=== PATIENT | female | born 1950 | race Caucasian/White ===

== ENCOUNTER 2017-04-27 09:53 | Inpatient (IN) | payer OTHER, BC ==
[~2017-04-27] VITALS: Ht 152.4 cm; Wt 73.8 kg
[2017-04-27] VITALS (22 sets, daily range): BP systolic 82–127; BP diastolic 32–62
[2017-04-27 10:43] LABS: BASOPHIL (%) 0.2 % (0-1); EOSINOPHIL (%) 0 % (0-5); HEMATOCRIT 13.1 % (36.0-46.0); HEMOGLOBIN 4.3 G/DL (11.9-15.5); IMMATURE GRANULOCYTE (%) 0.6 % (0.0-0.7); LYMPHOCYTE (%) 14.7 % (15-42); LYMPHOCYTE COUNT 1.8 K/uL (1.0-2.8); MCH 35.2 PG (29.0-34.0); MCHC 32.8 G/DL (30.0-36.0); MCV 107.4 FL (83-99); MONOCYTE COUNT 0.7 K/uL (0-0.8); NEUTROPHIL (%) 78.5 % (45-76); NEUTROPHIL COUNT 9.4 K/uL (1.8-6.4); PLATELET COUNT 212 K/uL (156-360); RBC DIS.WIDTH-CV 14.3 % (11.8-14.6); RBC DIS.WIDTH-SD 56.5 % (39-53); RED BLOOD COUNT 1.22 M/uL (3.80-5.20)
[2017-04-27 10:45] LABS: ALBUMIN 2.5 g/dL (3.2-4.8)
[2017-04-27 10:46] LABS: CHLORIDE 110 mEq/L (99-109); SODIUM 137 mEq/L (136-147)
[2017-04-27 10:48] LABS: GLUCOSE 131 mg/dL (70-99); TOTAL PROTEIN 5.1 g/dL (6.4-8.3)
[2017-04-27 10:50] LABS: TOTAL BILIRUBIN 0.9 mg/dL (0.0-1.0)
[2017-04-27 10:51] LABS: ALKALINE PHOSPHATASE 421 IU/L (3-129)
[2017-04-27 10:52] LABS: GFR ESTIMATE (CALCULATED) 59 mL/min/
[2017-04-27 10:53] LABS: AST (GOT) 87 IU/L (2-34); UREA NITROGEN (BUN) 49 mg/dL (9-23)
[2017-04-27 10:54] LABS: ALT (GPT) 53 IU/L (3-49)
[2017-04-27 10:55] LABS: LIPASE 89 U/L (1.0-51.0)
[2017-04-27] MEDS ORDERED: B-COMPLEX-VITA1 EACH PO (11:26)
[2017-04-27] MEDS ORDERED: ASCORBIC ACID250 MG PO (11:26)
[2017-04-27] MEDS ORDERED: VITAMIN D31000 UNI2 PO (11:27)
[2017-04-27] MEDS ORDERED: GINKGO BILOBA60 M3 PO (11:28)
[2017-04-27] MEDS ORDERED: CALCIUM-MAGNES1 EA10 PO (11:28)
[2017-04-27] MEDS ORDERED: HAIR, SKIN & N1 EAC1 PO (11:29)
[2017-04-27 13:03] LABS: INTER. NORMALIZED RATIO 1.3
[2017-04-27 13:06] LABS: PTT 30.1 SEC (25-37)
[2017-04-27 18:43] LABS: CHLORIDE 111 MEQ/L (99-109); POTASSIUM 4.3 MEQ/L (3.7-5.4); SODIUM 137 MEQ/L (136-147)
[2017-04-27 18:47] LABS: HEMATOCRIT 19.4 % (36.0-46.0); HEMOGLOBIN 6.6 G/DL (11.9-15.5); MCH 31.9 PG (29.0-34.0); MCV 93.7 FL (83-99); NRBC (%) 0.1 /100 WBC (0-0); PLATELET COUNT 164 K/uL (156-360); RBC DIS.WIDTH-CV 18.9 % (11.8-14.6); RBC DIS.WIDTH-SD 63.1 % (39-53); RED BLOOD COUNT 2.07 M/uL (3.80-5.20)
[2017-04-27 18:48] LABS: CREATININE 0.9 MG/DL (0.6-1.3); GFR ESTIMATE (CALCULATED) > 59 mL/min/; GLUCOSE 116 mg/dL (70-99); UREA NITROGEN (BUN) 46 mg/dL (9-23)
[2017-04-27 19:09] LABS: FERRITIN 7 NG/ML (10-291)
[2017-04-27 19:15] LABS: FOLIC ACID (FOLATE) 14.9 NG/ML (5.0-22.0)
[2017-04-28] VITALS (31 sets, daily range): BP systolic 89–156; BP diastolic 36–101
[2017-04-28 05:24] LABS: INTER. NORMALIZED RATIO 1.2
[2017-04-28 05:25] LABS: BASOPHIL (%) 0.5 % (0-1); BASOPHIL COUNT 0.1 K/uL (0-0.1); EOSINOPHIL (%) 0.2 % (0-5); IMMATURE GRANULOCYTE (%) 1.2 % (0.0-0.7); LYMPHOCYTE (%) 19.2 % (15-42); LYMPHOCYTE COUNT 3.1 K/uL (1.0-2.8); MCH 28.5 PG (29.0-34.0); MCHC 33.1 G/DL (30.0-36.0); MONOCYTE (%) 7.6 % (3-12); MONOCYTE COUNT 1.2 K/uL (0-0.8); NEUTROPHIL (%) 71.3 % (45-76); NEUTROPHIL COUNT 11.7 K/uL (1.8-6.4); NRBC (%) 0.3 /100 WBC (0-0); PLATELET COUNT 150 K/uL (156-360); WHITE BLOOD COUNT 16.3 K/uL (4.1-10.2)
[2017-04-28 05:28] LABS: HEMOGLOBIN 9.6 G/DL (11.9-15.5); MCV 86.1 FL (83-99); RED BLOOD COUNT 3.37 M/uL (3.80-5.20)
[2017-04-28 05:44] LABS: ALBUMIN 2.3 G/DL (3.2-4.8); ALKALINE PHOSPHATASE 284 IU/L (3-129); ALT (GPT) 39 IU/L (3-49); AST (GOT) 58 IU/L (2-34); CHLORIDE 107 MEQ/L (99-109); CREATININE 1.1 MG/DL (0.6-1.3); GFR ESTIMATE (CALCULATED) 53 mL/min/; GLUCOSE 109 mg/dL (70-99); POTASSIUM 4.7 MEQ/L (3.7-5.4); SODIUM 138 MEQ/L (136-147); TOTAL BILIRUBIN 2.3 MG/DL (0.0-1.0); TOTAL PROTEIN 4.9 G/DL (6.4-8.3); UREA NITROGEN (BUN) 46 mg/dL (9-23)
[2017-04-28 11:17] LABS: HEPATITIS B SURFACE ANTIGEN Nonreactive; HEPATITIS C ANTIBODY Nonreactive
[2017-04-28 12:32] LABS: HEMATOCRIT 27.9 % (36.0-46.0); HEMOGLOBIN 9.2 G/DL (11.9-15.5); MCH 28.8 PG (29.0-34.0); MCV 87.2 FL (83-99); NRBC (%) 0.2 /100 WBC (0-0); PLATELET COUNT 127 K/uL (156-360); RBC DIS.WIDTH-CV 21.1 % (11.8-14.6); RBC DIS.WIDTH-SD 65.6 % (39-53); WHITE BLOOD COUNT 12.1 K/uL (4.1-10.2)
[2017-04-28 17:56] LABS: BICARBONATE 20.4 mEq/L (22-26); CARBOXY HGB 1.5 % (0-5); COMMENTS - BLOOD GASES A+C+; METHEMOGLOBIN 1.4 % (0-1.5); PCO2 30 mm Hg (35-45); PO2 323 mm Hg (80-100); SITE RR; pH 7.44 (7.35-7.45)
[2017-04-28 17:57] LABS: DEVICE 980VENT; FI02 100 %; MECHANICAL RATE 10 resp/min; MODE AC; PEEP 5 CM/H20; TIDAL VOLUME 500 ML; TOTAL RESP RATE 13 resp/min
[2017-04-28 18:31] LABS: HEMATOCRIT 29.1 % (36.0-46.0); HEMOGLOBIN 9.7 G/DL (11.9-15.5); MCH 28.8 PG (29.0-34.0); MCHC 33.3 G/DL (30.0-36.0); MCV 86.4 FL (83-99); NRBC (%) 0.2 /100 WBC (0-0); RBC DIS.WIDTH-CV 21.2 % (11.8-14.6); RBC DIS.WIDTH-SD 64.5 % (39-53); RED BLOOD COUNT 3.37 M/uL (3.80-5.20); WHITE BLOOD COUNT 12.3 K/uL (4.1-10.2)
[2017-04-28 18:44] LABS: PLAT.SUFFICIENCY DECREASED; PLATELET COUNT 131 K/uL (156-360)
[2017-04-29] VITALS (23 sets, daily range): BP systolic 93–135; BP diastolic 40–70
[2017-04-29 01:08] LABS: HEMATOCRIT 30.8 % (36.0-46.0); HEMOGLOBIN 9.7 G/DL (11.9-15.5); MCH 29.5 PG (29.0-34.0); MCHC 31.5 G/DL (30.0-36.0); MCV 93.6 FL (83-99); NRBC (%) 0.4 /100 WBC (0-0); RBC DIS.WIDTH-CV 22.3 % (11.8-14.6); RBC DIS.WIDTH-SD 74.4 % (39-53); RED BLOOD COUNT 3.29 M/uL (3.80-5.20); WHITE BLOOD COUNT 20.5 K/uL (4.1-10.2)
[2017-04-29 01:47] LABS: PLAT.SUFFICIENCY DECREASED; PLATELET CLUMPS PRESENT - PLATELET COUNTS APPEARS DECREASED
[2017-04-29 02:00] LABS: PLATELET COUNT UNABLE TO REPORT K/uL (156-360)
[2017-04-29 06:18] LABS: ALBUMIN 2.3 G/DL (3.2-4.8); ALKALINE PHOSPHATASE 241 IU/L (3-129); ALT (GPT) 40 IU/L (3-49); AST (GOT) 52 IU/L (2-34); CHLORIDE 111 MEQ/L (99-109); GFR ESTIMATE (CALCULATED) 59 mL/min/; GLUCOSE 116 mg/dL (70-99); POTASSIUM 4.1 MEQ/L (3.7-5.4); SODIUM 140 MEQ/L (136-147); TOTAL PROTEIN 4.9 G/DL (6.4-8.3); UREA NITROGEN (BUN) 36 mg/dL (9-23)
[2017-04-29 06:19] LABS: TOTAL BILIRUBIN 1.3 MG/DL (0.0-1.0)
[2017-04-29 06:32] LABS: BASOPHIL (%) 0.4 % (0-1); BASOPHIL COUNT 0.1 K/uL (0-0.1); EOSINOPHIL (%) 0.6 % (0-5); EOSINOPHIL COUNT 0.1 K/uL (0-0.3); HEMATOCRIT 27.1 % (36.0-46.0); HEMOGLOBIN 8.8 G/DL (11.9-15.5); IMMATURE GRANULOCYTE (%) 0.4 % (0.0-0.7); LYMPHOCYTE (%) 13.2 % (15-42); LYMPHOCYTE COUNT 2.1 K/uL (1.0-2.8); MCH 28.8 PG (29.0-34.0); MCHC 32.5 G/DL (30.0-36.0); MCV 88.6 FL (83-99); MONOCYTE (%) 8.2 % (3-12); MONOCYTE COUNT 1.3 K/uL (0-0.8); NEUTROPHIL (%) 77.2 % (45-76); NEUTROPHIL COUNT 12.1 K/uL (1.8-6.4); PLATELET COUNT 139 K/uL (156-360); RBC DIS.WIDTH-CV 21.6 % (11.8-14.6); RBC DIS.WIDTH-SD 67.1 % (39-53); RED BLOOD COUNT 3.06 M/uL (3.80-5.20); WHITE BLOOD COUNT 15.7 K/uL (4.1-10.2)
[2017-04-29 12:10] LABS: HEMATOCRIT 31.4 % (36.0-46.0); HEMOGLOBIN 10.2 G/DL (11.9-15.5); MCH 29.2 PG (29.0-34.0); MCHC 32.5 G/DL (30.0-36.0); PLATELET COUNT 156 K/uL (156-360); RBC DIS.WIDTH-CV 21.9 % (11.8-14.6); RBC DIS.WIDTH-SD 69.5 % (39-53); RED BLOOD COUNT 3.49 M/uL (3.80-5.20); WHITE BLOOD COUNT 19.2 K/uL (4.1-10.2)
[2017-04-29 18:32] LABS: HEMOGLOBIN 8.9 G/DL (11.9-15.5); MCH 29.3 PG (29.0-34.0); MCV 88.8 FL (83-99); PLATELET COUNT 164 K/uL (156-360); RBC DIS.WIDTH-CV 21.2 % (11.8-14.6); RBC DIS.WIDTH-SD 65.9 % (39-53); RED BLOOD COUNT 3.04 M/uL (3.80-5.20)
[2017-04-29 20:00] LABS: TYPE OF FLUID PARACENTESIS
[2017-04-29 20:47] LABS: APPEARANCE YELLOW-CLEAR; BODY FLUID EOSINOPHILS 0 % (0-25); BODY FLUID RBC'S < 1000 /MM^3 (0-100); BODY FLUID WBC'S 53 /MM^3 (0-500); COMMENT MODERATE MACROPHAGES SEEN; MONONUCLEAR WBC'S 60 %; POLYNUCLEAR WBC'S 40 % (0-25)
[2017-04-30] VITALS (24 sets, daily range): BP systolic 83–114; BP diastolic 38–58
[2017-04-30 03:03] LABS: BODY FLUID PROTEIN < 3.0 G/DL
[2017-04-30 06:32] LABS: ALBUMIN 2.1 G/DL (3.2-4.8); ALKALINE PHOSPHATASE 196 IU/L (3-129); ALT (GPT) 31 IU/L (3-49); AST (GOT) 38 IU/L (2-34); CHLORIDE 115 MEQ/L (99-109); CREATININE 0.8 MG/DL (0.6-1.3); GFR ESTIMATE (CALCULATED) > 59 mL/min/; GLUCOSE 101 mg/dL (70-99); POTASSIUM 3.9 MEQ/L (3.7-5.4); SODIUM 143 MEQ/L (136-147); TOTAL PROTEIN 4.4 G/DL (6.4-8.3); UREA NITROGEN (BUN) 33 mg/dL (9-23)
[2017-04-30 06:37] LABS: TOTAL BILIRUBIN 1.7 MG/DL (0.0-1.0)
[2017-04-30 07:01] LABS: INTER. NORMALIZED RATIO 1.1
[2017-04-30 07:13] LABS: BASOPHIL (%) 0.4 % (0-1); BASOPHIL COUNT 0.1 K/uL (0-0.1); EOSINOPHIL (%) 0.6 % (0-5); EOSINOPHIL COUNT 0.1 K/uL (0-0.3); HEMATOCRIT 26.2 % (36.0-46.0); HEMOGLOBIN 8.2 G/DL (11.9-15.5); IMMATURE GRANULOCYTE (%) 0.4 % (0.0-0.7); LYMPHOCYTE (%) 10.5 % (15-42); LYMPHOCYTE COUNT 1.5 K/uL (1.0-2.8); MCH 28.4 PG (29.0-34.0); MCHC 31.3 G/DL (30.0-36.0); MCV 90.7 FL (83-99); MONOCYTE (%) 9.7 % (3-12); MONOCYTE COUNT 1.4 K/uL (0-0.8); NEUTROPHIL (%) 78.4 % (45-76); RBC DIS.WIDTH-CV 20.9 % (11.8-14.6); RBC DIS.WIDTH-SD 67.5 % (39-53); RED BLOOD COUNT 2.89 M/uL (3.80-5.20); WHITE BLOOD COUNT 14.1 K/uL (4.1-10.2)
[2017-04-30 07:28] LABS: CARCINOEMBR.ANTIGEN 2.9 NG/ML
[2017-04-30 07:30] LABS: PLAT.SUFFICIENCY DECREASED
[2017-04-30 07:44] LABS: PLATELET COUNT 95 K/uL (156-360)
[2017-04-30 18:07] LABS: ANTI-SMOOTH MUSCLE (Actin)+ <20 U (<20)
[2017-05-01] VITALS (22 sets, daily range): BP systolic 82–118; BP diastolic 39–70
[2017-05-01 05:35] LABS: BASOPHIL (%) 0.6 % (0-1); BASOPHIL COUNT 0.1 K/uL (0-0.1); EOSINOPHIL (%) 2.8 % (0-5); EOSINOPHIL COUNT 0.2 K/uL (0-0.3); HEMATOCRIT 20.8 % (36.0-46.0); HEMOGLOBIN 6.6 G/DL (11.9-15.5); IMMATURE GRANULOCYTE (%) 0.5 % (0.0-0.7); INTER. NORMALIZED RATIO 1.2; LYMPHOCYTE (%) 14.3 % (15-42); LYMPHOCYTE COUNT 1.2 K/uL (1.0-2.8); MCH 29.2 PG (29.0-34.0); MCHC 31.7 G/DL (30.0-36.0); MONOCYTE (%) 7.7 % (3-12); MONOCYTE COUNT 0.6 K/uL (0-0.8); NEUTROPHIL (%) 74.1 % (45-76); NEUTROPHIL COUNT 6.2 K/uL (1.8-6.4); PLATELET COUNT 92 K/uL (156-360); RBC DIS.WIDTH-CV 20.8 % (11.8-14.6); RBC DIS.WIDTH-SD 67.9 % (39-53); RED BLOOD COUNT 2.26 M/uL (3.80-5.20); WHITE BLOOD COUNT 8.3 K/uL (4.1-10.2)
[2017-05-01 05:56] LABS: ALBUMIN 2.1 G/DL (3.2-4.8); ALKALINE PHOSPHATASE 141 IU/L (3-129); ALT (GPT) 23 IU/L (3-49); AST (GOT) 30 IU/L (2-34); CHLORIDE 114 MEQ/L (99-109); CREATININE 0.7 MG/DL (0.6-1.3); GFR ESTIMATE (CALCULATED) > 59 mL/min/; GLUCOSE 92 mg/dL (70-99); POTASSIUM 3.5 MEQ/L (3.7-5.4); SODIUM 142 MEQ/L (136-147); TOTAL BILIRUBIN 1.5 MG/DL (0.0-1.0); TOTAL PROTEIN 4.2 G/DL (6.4-8.3); UREA NITROGEN (BUN) 24 mg/dL (9-23)
[2017-05-01 14:22] LABS: HEMOGLOBIN 10.4 G/DL (11.9-15.5); MCV 91.2 FL (83-99)
[2017-05-01 17:53] LABS: MITOCHONDRIAL (M2) ANTIBODIES+ 134.2 U (<=20.0)
[2017-05-02] VITALS (16 sets, daily range): BP systolic 91–117; BP diastolic 37–90
[2017-05-02 04:55] LABS: BASOPHIL (%) 0.5 % (0-1); BASOPHIL COUNT 0.1 K/uL (0-0.1); EOSINOPHIL (%) 3.4 % (0-5); EOSINOPHIL COUNT 0.3 K/uL (0-0.3); HEMOGLOBIN 10.2 G/DL (11.9-15.5); IMMATURE GRANULOCYTE (%) 0.6 % (0.0-0.7); LYMPHOCYTE (%) 14.1 % (15-42); LYMPHOCYTE COUNT 1.3 K/uL (1.0-2.8); MCHC 32.9 G/DL (30.0-36.0); MCV 88.1 FL (83-99); MONOCYTE (%) 8.3 % (3-12); MONOCYTE COUNT 0.8 K/uL (0-0.8); NEUTROPHIL (%) 73.1 % (45-76); NEUTROPHIL COUNT 6.9 K/uL (1.8-6.4); PLATELET COUNT 99 K/uL (156-360); RBC DIS.WIDTH-CV 18.6 % (11.8-14.6); RBC DIS.WIDTH-SD 58.5 % (39-53); WHITE BLOOD COUNT 9.5 K/uL (4.1-10.2)
[2017-05-02 04:57] LABS: RED BLOOD COUNT 3.52 M/uL (3.80-5.20)
[2017-05-02 05:04] LABS: ALBUMIN 2.3 g/dL (3.2-4.8); CHLORIDE 114 mEq/L (99-109); POTASSIUM 4.2 mEq/L (3.7-5.4); SODIUM 138 mEq/L (136-147)
[2017-05-02 05:07] LABS: GLUCOSE 103 mg/dL (70-99); TOTAL PROTEIN 4.6 g/dL (6.4-8.3)
[2017-05-02 05:10] LABS: CREATININE 0.6 mg/dL (0.6-1.3); GFR ESTIMATE (CALCULATED) > 59 mL/min/
[2017-05-02 05:11] LABS: ALKALINE PHOSPHATASE 184 IU/L (3-129); TOTAL BILIRUBIN 2.6 mg/dL (0.0-1.0); UREA NITROGEN (BUN) 20 mg/dL (9-23)
[2017-05-02 05:12] LABS: AST (GOT) 39 IU/L (2-34)
[2017-05-02 05:13] LABS: ALT (GPT) 30 IU/L (3-49)
[2017-05-02 07:18] LABS: INTER. NORMALIZED RATIO 1.2
[2017-05-02 07:21] LABS: PTT 34.8 SEC (25-37)
[2017-05-03 03:11] VITALS: BP 100/58
[2017-05-03 07:36] VITALS: BP 109/52
[2017-05-03 09:35] LABS: HEMATOCRIT 33.4 % (36.0-46.0); MCH 29.7 PG (29.0-34.0); MCHC 32.9 G/DL (30.0-36.0); MCV 90.3 FL (83-99); PLATELET COUNT 121 K/uL (156-360); RBC DIS.WIDTH-CV 18.6 % (11.8-14.6); RBC DIS.WIDTH-SD 59.9 % (39-53); WHITE BLOOD COUNT 8.7 K/uL (4.1-10.2)
[2017-05-03 10:12] LABS: ALBUMIN 2.3 G/DL (3.2-4.8); ALKALINE PHOSPHATASE 161 IU/L (3-129); ALT (GPT) 28 IU/L (3-49); AST (GOT) 39 IU/L (2-34); CHLORIDE 109 MEQ/L (99-109); CREATININE 0.6 MG/DL (0.6-1.3); DIRECT BILIRUBIN 1.2 mg/dL (0.0-0.3); GFR ESTIMATE (CALCULATED) > 59 mL/min/; GLUCOSE 146 mg/dL (70-99); POTASSIUM 4.1 MEQ/L (3.7-5.4); SODIUM 134 MEQ/L (136-147); TOTAL BILIRUBIN 2.5 MG/DL (0.0-1.0); TOTAL PROTEIN 4.7 G/DL (6.4-8.3); UREA NITROGEN (BUN) 14 mg/dL (9-23)
[2017-05-03 11:47] VITALS: BP 108/58
[2017-05-03 15:53] VITALS: BP 126/58
[2017-05-03 23:34] VITALS: BP 105/51
[2017-05-04 04:36] LABS: HEMATOCRIT 30.2 % (36.0-46.0); MCH 29.4 PG (29.0-34.0); MCHC 33.1 G/DL (30.0-36.0); MCV 88.8 FL (83-99); PLATELET COUNT 110 K/uL (156-360); RBC DIS.WIDTH-CV 18.3 % (11.8-14.6); RBC DIS.WIDTH-SD 57.6 % (39-53); WHITE BLOOD COUNT 7.6 K/uL (4.1-10.2)
[2017-05-04 04:46] LABS: ALBUMIN 2.2 g/dL (3.2-4.8); CHLORIDE 111 mEq/L (99-109); POTASSIUM 3.7 mEq/L (3.7-5.4); SODIUM 135 mEq/L (136-147)
[2017-05-04 04:49] LABS: TOTAL PROTEIN 4.5 g/dL (6.4-8.3)
[2017-05-04 04:51] LABS: TOTAL BILIRUBIN 2.4 mg/dL (0.0-1.0)
[2017-05-04 04:52] LABS: ALKALINE PHOSPHATASE 206 IU/L (3-129); CREATININE 0.6 mg/dL (0.6-1.3); GFR ESTIMATE (CALCULATED) > 59 mL/min/
[2017-05-04 04:54] LABS: AST (GOT) 50 IU/L (2-34); DIRECT BILIRUBIN 1.5 mg/dL (0.0-0.3); UREA NITROGEN (BUN) 10 mg/dL (9-23)
[2017-05-04 04:55] LABS: ALT (GPT) 31 IU/L (3-49)
[2017-05-04 05:21] LABS: GLUCOSE 90 mg/dL (70-99)
[2017-05-04 08:19] VITALS: BP 104/58
[2017-05-04 15:48] VITALS: BP 121/60
[2017-05-04 23:16] VITALS: BP 97/46
[2017-05-05 04:04] VITALS: BP 103/55
[2017-05-05 06:06] LABS: HEMATOCRIT 34.1 % (36.0-46.0); HEMOGLOBIN 11.1 G/DL (11.9-15.5); MCH 29.1 PG (29.0-34.0); MCHC 32.6 G/DL (30.0-36.0); MCV 89.5 FL (83-99); PLATELET COUNT 123 K/uL (156-360); RBC DIS.WIDTH-CV 18.8 % (11.8-14.6); RBC DIS.WIDTH-SD 60.3 % (39-53); RED BLOOD COUNT 3.81 M/uL (3.80-5.20); WHITE BLOOD COUNT 7.9 K/uL (4.1-10.2)
[2017-05-05 06:12] LABS: CHLORIDE 111 MEQ/L (99-109); CREATININE 0.6 MG/DL (0.6-1.3); GFR ESTIMATE (CALCULATED) > 59 mL/min/; GLUCOSE 87 mg/dL (70-99); POTASSIUM 4.3 MEQ/L (3.7-5.4); SODIUM 137 MEQ/L (136-147); UREA NITROGEN (BUN) 11 mg/dL (9-23)
[2017-05-05 07:42] VITALS: BP 102/51
[2017-05-05 07:54] LABS: BASOPHIL (%) 0.9 % (0-1); BASOPHIL COUNT 0.1 K/uL (0-0.1); EOSINOPHIL (%) 3.6 % (0-5); EOSINOPHIL COUNT 0.3 K/uL (0-0.3); IMMATURE GRANULOCYTE (%) 0.5 % (0.0-0.7); LYMPHOCYTE (%) 23.9 % (15-42); LYMPHOCYTE COUNT 1.9 K/uL (1.0-2.8); MONOCYTE (%) 10.7 % (3-12); MONOCYTE COUNT 0.8 K/uL (0-0.8); NEUTROPHIL (%) 60.4 % (45-76); NEUTROPHIL COUNT 4.8 K/uL (1.8-6.4)
[2017-05-05] MEDS ORDERED: PANTOPRAZOLE SO40 MG PO (13:11)
[2017-05-05] MEDS ORDERED: XIFAXAN550 MG PO (13:11)
[2017-05-05] MEDS ORDERED: Chronulac,Cephulac,E PO ×2 (13:11→13:19)
== END 2017-05-05 16:02 | disposition home health service (06) | DRG 432 ==
LOC: EME 09:53 → 4WEST 12:14 → EDOF 12:14 → ENRESERV 12:15 → EDOF 13:03 → 4WEST 13:52 → ENRESERV 05-02 15:21 → 3EAST 05-02 17:06
PROVIDERS: Emergency Medicine; Hospitalist; Internal Medicine Critical Care Medicine; Internal Medicine Gastroenterology; Physician Assistant; Student in an Organized Health Care Education/Training Program
PROC: 30233N1 Transfusion of Nonautologous Red Blood Cells into Peripheral Vein, Percutaneous Approach (ICD-10-PCS; principal; 2017-04-27)
PROC: 06L38CZ Occlusion of Esophageal Vein with Extraluminal Device, Via Natural or Artificial Opening Endoscopic (ICD-10-PCS; 2017-04-28)
PROC: 5A1945Z Respiratory Ventilation, 24-96 Consecutive Hours (ICD-10-PCS; 2017-04-28)
PROC: 0BH17EZ Insertion of Endotracheal Airway into Trachea, Via Natural or Artificial Opening (ICD-10-PCS; 2017-04-28)
PROC: 0W9G3ZZ Drainage of Peritoneal Cavity, Percutaneous Approach (ICD-10-PCS; 2017-04-29)
PROC: 0W9G3ZX Drainage of Peritoneal Cavity, Percutaneous Approach, Diagnostic (ICD-10-PCS; 2017-04-29)
DX: K74.3 Primary biliary cirrhosis (principal); I85.11 Secondary esophageal varices with bleeding; D62 Acute posthemorrhagic anemia; J96.00 Acute respiratory failure, unspecified whether with hypoxia or hypercapnia; K72.90 Hepatic failure, unspecified without coma; D69.6 Thrombocytopenia, unspecified; K76.6 Portal hypertension; R18.8 Other ascites; R16.1 Splenomegaly, not elsewhere classified; K31.89 Other diseases of stomach and duodenum; K80.20 Calculus of gallbladder without cholecystitis without obstruction; D63.8 Anemia in other chronic diseases classified elsewhere; D72.829 Elevated white blood cell count, unspecified; E66.9 Obesity, unspecified; Z68.31 Body mass index [BMI] 31.0-31.9, adult; Z23 Encounter for immunization
CPT/HCPCS: 36600; 49083; 70450; 71045; 74177; 76705; 80048; 80048 91; 80053; 80076; 82105 90; 82140; 82378; 82607; 82728; 82746; 82803; 83516 90; 83605; 83690; 84157; 85014; 85018; 85025; 85027; 85610; 85730; 86038; 86256 90; 86803; 86850; 86900; 86901; 86905; 86920; 87070; 87205; 87340; 87641; 88108; 89051; 90686; 94002; 94003; 97530 GP; 99281; 99285; C1751; C1753; C9113; J0696; J2250; J2354; J2405; J2704; J7030; J7040; J7050; J7120; P9016; P9045